=== PATIENT | male | born 2000 | race Caucasian/White ===

== ENCOUNTER 2020-12-12 17:07 | Emergency (ER) | payer SELFPAY ==
[~2020-12-12] VITALS: Ht 162.6 cm; Wt 72.0 kg
[2020-12-12] MEDS ORDERED: CEPHALEXIN 250MG CAPSULE PO ONE (18:00)
[2020-12-12] MEDS ORDERED: TETANUS, DIPHTHERIA, PERTUSSIS VAC/PF 0.5ML (>7YR OLD) IM ONE (18:00)
[2020-12-12] MEDS ORDERED: LIDOCAINE HCL/EPINEPHRINE 1%-EPI 1:100,000 20 ML VIAL INFIL NR (19:15)
[2020-12-12] MEDS ORDERED: LIDOCAINE HCL/EPINEPHRINE 1%-EPI 1:100,000 50 ML VIAL INFIL ONE (19:15)
[2020-12-12 19:30] VITALS: BP 135/88
[2020-12-12] MEDS ORDERED: BACITRACIN 15GM TUBE TOP ONE (19:45)
[2020-12-12] MEDS ORDERED: CEPH500T MT (20:09)
== END 2020-12-12 20:20 | disposition home or self-care (01) ==
LOC: ER 17:07
DX: S61.011A Laceration without foreign body of right thumb without damage to nail, initial encounter (principal); W26.8XXA Contact with other sharp object(s), not elsewhere classified, initial encounter; Y93.89 Activity, other specified; Y92.89 Other specified places as the place of occurrence of the external cause; Y99.8 Other external cause status
CPT/HCPCS: 12001; 73120; 90471; 90715; 99283; J3490